=== PATIENT | male | born 1975 | race Caucasian/White ===

== ENCOUNTER 2016-08-04 16:41 | Emergency (ER) | payer SELFPAY ==
[~2016-08-04] VITALS: Ht 182.9 cm; Wt 75.0 kg
[2016-08-04 16:44] VITALS: BP 127/80; RESP 16; O2SAT 99
== END 2016-08-04 17:26 | disposition left against medical advice (07) ==
LOC: SED 16:41
DX: Z53.20 Procedure and treatment not carried out because of patient's decision for unspecified reasons (principal)

== ENCOUNTER 2017-01-04 20:23 | Emergency (ER) | payer OTHER ==
[~2017-01-04] VITALS: Ht 185.4 cm; Wt 72.7 kg
[2017-01-04 20:33] VITALS: BP 112/67; PULSE 105; RESP 18; O2SAT 97
--- NOTE | 2017-01-04 21:36 | ED.REPORT ---
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 Associated sx include mild chest pain, fever, dizziness, numbness, lightheadedness and cough. He is currently asymptomatic.The pt states he only came in because his urgent care physician insisted he get checked for PE. Pt states he wants to leave as he has work early tomorrow. Nursing Notes Stated Complaint: SOB, WEAKNESS, FINGERS TINGLING/U.C. SENT Chief Complaint: General Complaint Nursing Notes Reviewed: Yes Allergies: Coded Allergies: No Known Allergies (Verified Allergy, Unknown, 01/04/17) General Time Seen by MD: 21:36 Chief Complaint Back pain Hx Obtained From: Patient Arrived By: Walk-in Sudden in Onset?: Yes Onset Occurred: 3 days ago Symptom Duration: 1 - 15 minutes Location: : Back Quality: Painful Radiation: : Does not radiate Severity: Current: Moderate Severity: Maximum: Moderate Recent Healthcare: Recent doctor visit Similar Sx Previous: No Past Medical History Past Medical History Hiatal hernia Past Surgical History Endoscopy Family History Noncontributory Smoking History Unknown if Ever Smoker Social History Other Social History: Local resident Ambulatory Status Independent Review of Systems Full Review of Systems Constitutional: Reports: Fever Respiratory: Reports: Non-productive cough Cardiovascular: Reports: Chest pain (mild) Musculoskeletal: Reports: Back pain Neurologic: Reports: Dizziness, Lightheaded, Numbness Complete sys rev & neg: except as marked. Physical Exam Vital Signs Vital Signs Date Time Temp Pulse Resp B/P Pulse Ox O2 Delivery O2 Flow Rate FiO2 01/04/17 22:03 38.0 105 18 112/67 97 Room Air 01/04/17 20:33 38.0 105 18 112/67 97 Room Air Initial VS: Reviewed Head / Eyes: Atraumatic, Normocephalic Abdomen / GI: Soft, Non-tender Extremities: Vascular intact, Neuro intact, No swelling, No tenderness Skin: Warm, Dry, No cyanosis General/Constitutional: Awake, Alert, No acute distress, Well appearing, Cooperative Low grade temperature Respiratory / Chest: Atraumatic, Breath sounds NL, Breath sounds = bilat, No respiratory distress, No rales, No rhonchi, No wheezing, No chest tenderness Cardiovascular: Regular rhythm, Heart sounds NL, No gallop, No murmurs, No rubs Heart Rate / Rhythm: Positive: Tachycardia Neurologic: Oriented X3, Speech NL, No motor deficits, No sensory deficits Psychiatric: Affect NL, Mood NL Interpretation & Diagnostics ECG Interpretation ECG Interpretation: Rate 99. EKG sent in by urgent care Time: 21:36 Interpreted by: ED physician Normal ECG Interpretation: Normal sinus rhythm (without acute ischemic changes) Re-Eval/Medical Decision Med Decision/Clinical Course Overall the patient's presentation is somewhat concerning. Describes chest pain with shortness of breath and some paresthesias that overall somewhat presyncopal episode as well. He is tachycardic and has a low-grade fever. However, his symptoms have now resolved, and he does not wish to stay. He is awake and alert and appropriate, he has his own decisional capacity and seems appropriate to make his own medical decisions. He declines any evaluation. I did review his EKG which did not show any acute ischemic changes. We did discuss at length the things that I would recommend. He did request the name of a primary care doctor with which to follow-up. He signed out AGAINST MEDICAL ADVICE. Return and follow-up precautions given. Time of Eval: 21:40 Re-Evaluation/Progress Note: Pt refused to get any tests done. F/U instructions and RTER warning given. All questions addressed. Counseled Regarding: Diagnosis, Need for follow-up, When/why to return to ED Discharge & Departure Primary Impression: Chest pain Disposition: AGAINST MEDICAL ADVICE Discharge Condition All VS Reviewed: Yes Condition: Stable Additional Instructions: Your symptoms today sound concerning overall. I recommend that you have further testing which would include some laboratory studies to further evaluate for heart attack or pulmonary embolism or infection. I also recommend that you have a chest x-ray. You should return immediately to the ER if you have recurrent symptoms. I also strongly encourage you to follow-up closely with outpatient primary care doctor. Referrals: [facility] Scribe Attestation Portions of this note were transcribed by Elinor Reis. I, , personally performed the history, physical exam and medical decision-making;I reviewed and confirmed the accuracy of the information in the transcribed note. Signed by Johny Gonzalez. 01/04/17 22:14 copies to: [facility] Anuel Melton DO Jan 04, 2017 21:36 Elinor Reis Jan 04, 2017 22:10
[2017-01-04 22:03] VITALS: BP 112/67; PULSE 105; RESP 18; O2SAT 97
== END 2017-01-04 22:05 | disposition left against medical advice (07) ==
LOC: SED 20:23
DX: R07.9 Chest pain, unspecified (principal); R50.9 Fever, unspecified; R42 Dizziness and giddiness; R20.0 Anesthesia of skin; R05 Cough; Z53.29 Procedure and treatment not carried out because of patient's decision for other reasons